=== PATIENT | male | born 1990 | race Caucasian/White ===

== ENCOUNTER 2022-07-20 19:57 | Emergency (ER) | payer BC, SELFPAY ==
[2022-07-20 19:59] VITALS: BP 154/92; PULSE 120; RESP 18; TEMP 36.8; O2SAT 94
[2022-07-20 20:46] LABS: Influenza A QL RT-PCR Negative (Negative); Influenza B QL RT-PCR Negative (Negative); SARS-CoV-2 RNA PCR Negative
--- NOTE | 2022-07-20 21:18 | ED.URI ---
HPI - URI/Sore Throat General Chief Complaint: Upper Respiratory Infection Stated Complaint: THROAT PAIN Time Seen by Provider: 07/20/22 20:57 Source: patient Mode of arrival: ambulatory Limitations: no limitations History of Present Illness HPI Narrative: This is a 32 year old male that presents to the ER for cold symptoms ongoing since yesterday. Reports cough, congestion, sore throat, malaise, and fever. Reports he has been taking over the counter cold medications. Reports he has not had an influenza or COVID vaccine. Denies chest pain or shortness of breath. Related Data Allergies Allergy/AdvReac Type Severity Reaction Status Date / Time amoxicillin [From Augmentin] Allergy Swelling Verified 07/20/22 21:00 of Lip/Tongue/Throat cefadroxil [From Duricef] Allergy Swelling Verified 07/20/22 21:00 of Lip/Tongue/Throat clavulanic acid Allergy Swelling Verified 07/20/22 21:00 [From Augmentin] of Lip/Tongue/Throat Review of Systems Review of Systems: CONSTITUTIONAL: Reports fever ENT: Reports rhinorrhea, congestion, sore throat CARDIOVASCULAR: Denies chest pain RESPIRATORY: Reports cough. Denies dyspnea. GASTROINTESTINAL: Denies abdominal pain, nausea, vomiting, or diarrhea. GENITOURINARY: Denies dysuria or hematuria. SKIN: Denies rash or itching. MUSCULOSKELETAL: Denies back pain, joint pain, or myalgia. NEUROLOGIC: Denies headache, numbness, or weakness. PSYCHIATRIC: Denies anxiety or depression All systems reviewed & are unremarkable except as noted in HPI and below PMFSH Past Medical History Medical History (Updated 07/20/22 @ 22:21 by Ailyn Gallardo PA-C) No active medical problems Social History Social History (Updated 07/20/22 @ 21:20 by Ailyn Gallardo PA-C) Smoking status: Never smoker Exam Narrative: GENERAL: Well-appearing, well-nourished, and in no acute distress. HEAD: Normocephalic, atraumatic. EYES: EOMI. ENT: Nares clear, no rhinorrhea or epistaxis. Mucous membranes moist. Oropharynx without tonsillar hypertrophy exudate or other lesions. Bilateral TMs pearly pacheco non-bulging NECK: Supple. No adenopathy or masses. CHEST: Clear to auscultation. No respiratory distress. No wheezes rales or rhonchi HEART: Regular rate and rhythm. No murmur heard. Normal peripheral pulses. EXTREMITIES: Normal range of motion. No edema. SKIN: Warm, dry, no rash. NEURO: No focal deficits. Alert and oriented x3. PSYCH: Normal mood and affect Course Vital Signs Vital signs: Vital Signs Temperature 98.3 F 07/20/22 19:59 Pulse Rate 120 H 07/20/22 19:59 Respiratory Rate 18 07/20/22 19:59 Blood Pressure 154/92 H 07/20/22 19:59 Pulse Oximetry 94 07/20/22 19:59 Oxygen Delivery Room Air 07/20/22 19:59 Temperature 98.3 F 07/20/22 19:59 Pulse Rate 105 H 07/20/22 22:23 Respiratory Rate 18 07/20/22 19:59 Blood Pressure 154/92 H 07/20/22 19:59 Pulse Oximetry 94 07/20/22 19:59 Oxygen Delivery Room Air 07/20/22 19:59 MDM - URI/Sore Throat MDM Narrative Medical decision making narrative: Patient presents to the Emergency Department for cold symptoms present since yesterday. Patient is afebrile and nontoxic-appearing. Lungs are clear on exam. Mildly tachycardic upon arrival. This improved with treatment of pain. Oxygen saturation is normal on room air. Influenza, COVID, and strep screens are negative. Patient was updated on case findings. He was instructed on continued care of viral infection. He is to follow-up with primary care provider. He was given warnings to return to the ER Lab Data Attestation: I reviewed the patient's lab results. Labs: Lab Results 07/20/22 07/20/22 Range/Units 20:06 21:23 Influenza A (RT-PCR) Negative (Negative) Influenza B (RT-PCR) Negative (Negative) SARS-CoV-2 RNA (RT-PCR) Negative Group A Strep (PCR) Not detected (Negative) Critical Care Time Critical Care Time Critical
[2022-07-20] MEDS: ACETAMINOPHEN 500 MG TABLET 1000 MG PO (21:29)
[2022-07-20 21:53] LABS: Strep Group A RT-PCR NOT DETECTED (Negative)
[2022-07-20 22:23] VITALS: PULSE 105
== END 2022-07-20 22:43 | disposition home or self-care (01) ==
PROVIDERS: Emergency Medicine; Emergency Provider Physician Assistant
DX: J06.9 Acute upper respiratory infection, unspecified (principal); Z20.822 Contact with and (suspected) exposure to COVID-19; Z28.310 Unvaccinated for COVID-19
CPT/HCPCS: 87636; 87651; 99283; A9270

== ENCOUNTER 2022-08-14 18:18 | Emergency (ER) | payer BC, SELFPAY ==
[2022-08-14 18:20] VITALS: BP 163/102; PULSE 100; RESP 16; TEMP 36.1; O2SAT 95
[2022-08-14 19:02] LABS: Strep Group A RT-PCR NOT DETECTED (Negative)
[2022-08-14 19:14] LABS: Influenza A QL RT-PCR Negative (Negative); Influenza B QL RT-PCR Negative (Negative); SARS-CoV-2 RNA PCR Negative
--- NOTE | 2022-08-14 20:14 | ED.GENADULT ---
HPI - General Adult General Chief complaint: Upper Respiratory Infection Stated complaint: sore throat and eye drainage Time Seen by Provider: 08/14/22 19:07 History of Present Illness HPI narrative: Patient is a 32-year-old male who presents ER with sinus congestion and eye redness/puffiness. Patient reports he has had multiple upper respiratory infections recently with sinus congestion. She recently he had muffled hearing in his left ear and ended up having be started on doxycycline by his PCP. He finished medication is doing well for 3 days before he came back. Nurses fever. He endorses purulent drainage from his eyes. No change in vision. No pain in his years. Reports his mucus from his nose is green its become brown. It causes him to have productive cough related to his postnasal drip. Related Data Allergies Allergy/AdvReac Type Severity Reaction Status Date / Time amoxicillin [From Augmentin] Allergy Swelling Verified 08/14/22 18:38 of Lip/Tongue/Throat cefadroxil [From Duricef] Allergy Swelling Verified 08/14/22 18:38 of Lip/Tongue/Throat clavulanic acid Allergy Swelling Verified 08/14/22 18:38 [From Augmentin] of Lip/Tongue/Throat Review of Systems Review of Systems: All systems reviewed & are unremarkable except as noted in HPI and below Constitutional: Constitutional: Denies chills and Denies fatigue Eyes: Comments: Eye drainage ENT: Reports nasal congestion and Reports sore throat Cardiovascular: Cardiovascular: Denies chest pain, Denies rapid heart rate and Denies radiating jaw, neck or arm pain Respiratory: Respiratory: Denies chest congestion, Reports cough and Denies dyspnea Gastrointestinal: Gastrointestinal: Denies abdominal pain, Denies nausea and Denies vomiting PMFSH Past Medical History Medical History No active medical problems Social History Social History Smoking status: Never smoker Exam Narrative: GENERAL: Well-appearing, well-nourished, and in no acute distress. HEAD: Normocephalic, atraumatic. EYES: PERRL and EOMI. bilateral conjunctival injection without drainage. ENT: Mucous membranes moist. Left tympanic membrane with scab consistent with healing perforation of eardrum. Normal right TM. NECK: Supple. CHEST: Clear to auscultation. No respiratory distress. HEART: Regular rate and rhythm. Normal peripheral pulses. EXTREMITIES: Normal range of motion. No edema. NEURO: Alert and oriented x3. PSYCH: Normal mood and affect. Course Course Emergency Course: The patient has recurrent bacterial sinusitis. Will change medication to Levaquin. We will also give ENT referral. Vital Signs Vital signs: Vital Signs Temperature 97.0 F L 08/14/22 18:20 Pulse Rate 100 08/14/22 18:20 Respiratory Rate 16 08/14/22 18:20 Blood Pressure 163/102 H 08/14/22 18:20 Pulse Oximetry 95 08/14/22 18:20 Temperature 97.0 F L 08/14/22 18:20 Pulse Rate 94 08/14/22 20:30 Respiratory Rate 15 08/14/22 20:30 Blood Pressure 142/89 H 08/14/22 20:30 Pulse Oximetry 97 08/14/22 20:30 Medical Decision Making Vital Signs Vital Signs: Vital Signs Temperature 97.0 F L 08/14/22 18:20 Pulse Rate 100 08/14/22 18:20 Respiratory Rate 16 08/14/22 18:20 Blood Pressure 163/102 H 08/14/22 18:20 Pulse Oximetry 95 08/14/22 18:20 Temperature 97.0 F L 08/14/22 18:20 Pulse Rate 94 08/14/22 20:30 Respiratory Rate 15 08/14/22 20:30 Blood Pressure 142/89 H 08/14/22 20:30 Pulse Oximetry 97 08/14/22 20:30 Lab Data Labs: Lab Results 08/14/22 08/14/22 Range/Units 18:27 18:27 Influenza A (RT-PCR) Negative (Negative) Influenza B (RT-PCR) Negative (Negative) SARS-CoV-2 RNA (RT-PCR) Negative Group A Strep (PCR) Not detected (Negative) Discharge Plan Discharge Clinical
[2022-08-14 20:30] VITALS: BP 142/89; PULSE 94; RESP 15; O2SAT 97
== END 2022-08-14 20:31 | disposition home or self-care (01) ==
PROVIDERS: Family Medicine; Emergency Provider Emergency Medicine; PCP Emergency Medicine
DX: J01.90 Acute sinusitis, unspecified (principal); B96.89 Other specified bacterial agents as the cause of diseases classified elsewhere; Z20.822 Contact with and (suspected) exposure to COVID-19
CPT/HCPCS: 87636; 87651; 99283